=== PATIENT | male | born 1995 | race Hispanic/Latino ===

== ENCOUNTER 2018-09-20 09:38 | Emergency (ER) | payer SELFPAY ==
[2018-09-20 10:11] LABS: #Lymphocytes 0.9 thou/uL (1.20-3.40); #Monocytes 0.3 thou/uL (0.11-0.59); #Neutrophils 6.3 thou/uL (1.40-6.50); %Eosinophils 0.2 % (0.0-10.0); %Lymphocytes 12.2 % (21.0-51.0); %Neutrophils 83.6 % (42.0-75.0); Hemoglobin 15.9 g/dL (14.0-18.0); Mean Corpuscular HGB CONC 32.5 g/dL (32.0-36.0); Mean Corpuscular Hemoglobin 30.5 pg (27.0-31.0); Mean Corpuscular Volume 93.8 fL (78.0-98.0); Mean Platelet Volume 6.2 fL (7.4-10.4); Platelet Count 370 thou/uL (130-400); Red Blood Cell (RBC) Count 5.21 mill/uL (4.70-6.10); White Blood Cell (WBC) Count 7.5 thou/uL (4.8-10.8)
[2018-09-20 10:27] LABS: Bilirubin Negative (Negative); Blood, Urine Negative (Negative); Clarity CLEAR (Clear); Glucose, Urine (Dipstick) Negative (Negative); Leukocyte Negative (Negative); Nitrite Negative (Negative); Protein, Urine (Dipstick) Negative (Neg-Trace); Specific Gravity, Urine 1.024 (1.002-1.036); pH, Urine 6.5 (5.0-9.0)
[2018-09-20 10:40] LABS: ALT (SGPT) 38 U/L (8-55); AST (SGOT) 35 U/L (5-34); Albumin 4.5 g/dL (3.5-5.0); Alkaline Phosphatase 57 U/L (40-150); Anion Gap 11 mmol/L (10-20); BUN (Urea Nitrogen) 12 mg/dL (8.9-20.6); Bilirubin, Total 2.1 mg/dL (0.2-1.2); Calc. Creatinine Clearance 0 mL/min (70-130); Calcium 9.5 mg/dL (7.8-10.44); Carbon Dioxide 27 mmol/L (22-29); Chloride 104 mmol/L (98-107); Estimated GFR-MDRD Greater than 90; Globulin 2.7 g/dL (2.4-3.5); Glucose 103 mg/dL (70-105); Lipase 10 U/L (8-78); Potassium 4.4 mmol/L (3.5-5.1); Protein, Total 7.2 g/dL (6.0-8.3); Sodium 138 mmol/L (136-145)
--- NOTE | 2018-09-20 13:26 | CT ---
CT ABDOMEN AND PELVIS WITH CONTRAST: HISTORY: Abdominal pain. FINDINGS: Lung bases are clear. No pericardial effusion. Moderate stool burden is present within the rectosigmoid. There is suture at the low rectum as well as suture at the rectosigmoid junction. There appears to be a prior colectomy. The liver, spleen, g allbladder, kidneys, and adrenal glands are unremarkable. The aortoiliac contour is nonaneurysmal. The orally administered contrast is seen transiting throughout the small bowel and extends into the l ow rectum. There appears to be bilateral pars interarticularis defects at L4. IMPRESSION: 1. Prior colectomy with dilated remainder of the rectosigmoid. This is likely neurogenic in nature. Correlation with a history of Crohn's disease. 2. No acute inflammatory process in the abdomen. 3. 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 POS: [facility]
== END 2018-09-20 12:38 | disposition home or self-care (01) ==
LOC: ERS 09:38
DX: R10.10 Upper abdominal pain, unspecified (principal)
CPT/HCPCS: 74177; 80053; 81003; 83690; 85025

== ENCOUNTER 2018-12-08 15:01 | Emergency (ER) | payer OTHER ==
[~2018-12-08 15:01] MED LIST: ISOVUE-370 76%-LOCM 1 ML ONE; Iopamidol 370 76% 50 ML VIAL FS ONE
[2018-12-08 15:29] LABS: #Basophils 0.1 thou/uL (0.0-0.2); #Eosinphils 0.1 thou/uL (0.0-0.7); #Lymphocytes 1.7 thou/uL (1.20-3.40); #Monocytes 0.6 thou/uL (0.11-0.59); #Neutrophils 4.2 thou/uL (1.40-6.50); %Basophils 0.8 % (0.0-1.0); %Eosinophils 0.8 % (0.0-10.0); %Lymphocytes 26.5 % (21.0-51.0); %Monocytes 8.7 % (0.0-10.0); %Neutrophils 63.2 % (42.0-75.0); Mean Corpuscular HGB CONC 33.7 g/dL (32.0-36.0); Mean Corpuscular Hemoglobin 30.9 pg (27.0-31.0); Mean Corpuscular Volume 91.8 fL (78.0-98.0); Mean Platelet Volume 6.3 fL (7.4-10.4); Platelet Count 337 thou/uL (130-400); RBC Distribution Width 11.5 % (11.5-14.5); Red Blood Cell (RBC) Count 5.16 mill/uL (4.70-6.10); White Blood Cell (WBC) Count 6.6 thou/uL (4.8-10.8)
[2018-12-08 15:50] LABS: Bilirubin Negative (Negative); Blood, Urine Negative (Negative); Clarity CLEAR (Clear); Glucose, Urine (Dipstick) Negative (Negative); Leukocyte Negative (Negative); Nitrite Negative (Negative); Protein, Urine (Dipstick) Negative (Neg-Trace); Specific Gravity, Urine 1.024 (1.002-1.036); Urobilinogen 0.2 mg/dL (0.2-1.0)
[2018-12-08 15:53] LABS: ALT (SGPT) 17 U/L (8-55); AST (SGOT) 23 U/L (5-34); Albumin 4.7 g/dL (3.5-5.0); Alkaline Phosphatase 69 U/L (40-150); Anion Gap 13 mmol/L (10-20); BUN (Urea Nitrogen) 13 mg/dL (8.9-20.6); Bilirubin, Total 4.1 mg/dL (0.2-1.2); Calc. Creatinine Clearance 0 mL/min (70-130); Carbon Dioxide 27 mmol/L (22-29); Chloride 101 mmol/L (98-107); Estimated GFR-MDRD Greater than 90; Globulin 2.9 g/dL (2.4-3.5); Glucose 90 mg/dL (70-105); Lipase 10 U/L (8-78); Potassium 4.2 mmol/L (3.5-5.1); Protein, Total 7.6 g/dL (6.0-8.3); Sodium 137 mmol/L (136-145)
--- NOTE | 2018-12-08 16:50 | RAD ---
CHEST 1 VIEW 2 VIEWS ABDOMEN: Date: 12/08/18 HISTORY: Pain. COMPARISON: None. FINDINGS: 1 VIEW CHEST: Normal cardiac silhouette. Pulmonary vessels and hilum are normal. Costophrenic angles are clear. No masses or consolidation, No pneumothorax or osseous abnormalities. 2 VIEWS: ABDOMEN: There is an air-filled loop of bowel, of uncertain etiology. There appears to be a suture chain at th is level. Given dilatation at the level of the suture chain, the possibility of an early obstructive process cannot be excluded. Abdomen and pelvis CT with oral and IV contrast is recommended. No eviden ce of pneumoperitoneum on the upright projection. IMPRESSION: Abdomen and pelvis CT with oral and IV contrast is recommended due to dilatation of a segment of ethan l at the level of an anastomotic suture chain. POS: [facility]
[2018-12-08] MEDS ORDERED: Ondansetron PF 4 MG/2 ML Vial ONE (17:32)
[2018-12-08] MEDS ORDERED: Morphine 4 MG/ML VIAL ONE (17:36)
[2018-12-08] MEDS ORDERED: Bisacodyl 10 MG SUPP ONE (19:56)
--- NOTE | 2018-12-08 20:35 | CT ---
CONTRAST ENHANCED CT IMAGES OF THE ABDOMEN AND PELVIS: 12/08/18 Comparison made to a previous exam from 09/20/18. The lung bases are unremarkable. No evidence of free intraperitoneal air seen. The liver, spleen, gallbladder, and pancreas are unremarkable. Adrenal glands are unremarkable. The kidneys are unremarkable. There is an areas of surgical rupali in the right upper quadrant of the abdomen adjacent to a loop o f what appears to be colon. Stool is seen in the colon. More distally at the area of the rectal anast omosis, additional stool also seen at the suture lines. I cannot definitively connect the more distal colon with the more proximal loops of colon; however, the inner segment appears to be visible possib ly, but does not contain a significant amount of stool. IMPRESSION: Findings suggesting at least two areas of stool in the colon possibly representing areas of constipat ion. No definite evidence of more proximal small bowel distention seen. No evidence of abscess seen. Findings called to Dr. Parsons at 7:22 p.m. on 12/08/18. Code CR POS: [facility]
== END 2018-12-08 21:11 | disposition home or self-care (01) ==
LOC: ERS 15:01
DX: K59.00 Constipation, unspecified (principal); K58.9 Irritable bowel syndrome, unspecified
CPT/HCPCS: 36415; 74022; 74177; 80053; 81003; 83690; 85025; 96361; 96374; 96375; J2270; J2405

== ENCOUNTER 2019-01-16 09:24 | Outpatient (CLI) | payer OTHER ==
--- NOTE | 2019-01-16 10:13 | ULT ---
EXAM: Abdominal ultrasound complete: HISTORY: Jaundice, elevated bilirubin COMPARISON: CT scan, 12/08/2018 FINDINGS: The liver appears unremarkable. The gallbladder demonstrates no evidence for gallstones, wall thickening, or pericholecystic fluid. The common bile duct is 0.3 cm Visualized pancreas: Unremarkable. Visualized abdominal aorta: Unremarkable. Visualized IVC: Unremarkable. Visualized spleen: Unremarkable. Visualized kidneys: No evidence for hydronephrosis or solid or cystic mass. No mass, abscess, adenopathy, or abnormal fluid collection or other acute process. IMPRESSION: Unremarkable abdominal ultrasound.
== END 2019-01-16 09:25 | disposition home or self-care (01) ==
LOC: BICULT 09:24
PROVIDERS: ATTEND Internal Medicine
DX: K51.90 Ulcerative colitis, unspecified, without complications (principal); E80.6 Other disorders of bilirubin metabolism
CPT/HCPCS: 36415; 76700; 80048; 80061; 80074; 86780; 87389; 87491; 87591